=== PATIENT | male | born 1995 ===

== ENCOUNTER 2018-02-12 14:37 | Emergency (ER) | payer OTHER ==
[2018-02-12 15:32] VITALS: BP 133/73
[2018-02-12] MEDS ORDERED: Ibuprofen TAB* 600 MG PO ONE (15:38)
--- NOTE | 2018-02-12 15:38 | UC ---
Throat Pain/Nasal Connor HPI - HPI Summary HPI Summary: Patient urgent care today with 3-4 days of bodyaches fevers chills nausea vomiting sore throat. Patient has no known illness exposures. He is a college student. He did not have influenza vaccine this year and he has never had mono. - History of Current Complaint Chief Complaint: UCRespiratory Stated Complaint: COUGH/ACHE Time Seen by Provider: 02/12/18 15:37 Hx Obtained From: Patient Onset/Duration: Sudden Onset, Lasting Days - 3-4 Severity: Severe Pain Intensity: 9 Pain Scale Used: 0-10 Numeric Cough: None Associated Signs & Symptoms: Positive: Fever - Allergies/Home Medications Allergies/Adverse Reactions: Allergies Allergy/AdvReac Type Severity Reaction Status Date / Time No Known Allergies Allergy Verified 02/12/18 15:24 Home Medications: Home Medications Acetaminophen TAB* [Tylenol TAB*] 650 mg PO Q4H PRN 02/12/18 [History Confirmed 02/12/18] PMH/Surg Hx/FS Hx/Imm Hx Previously Healthy: No - 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 - Surgical History Surgical History: None - Family History Known Family History: Positive: None - Social History Occupation: Student Lives: Dormitory/Roommates Alcohol Use: Occasionally Substance Use Type: None Smoking Status (MU): Never Smoked Tobacco Review of Systems Constitutional: Fever, Chills, Fatigue Skin: Negative Eyes: Negative ENT: Sore Throat Respiratory: Negative Cardiovascular: Negative Gastrointestinal: Abdominal Pain, Vomiting, Diarrhea, Nausea Genitourinary: Negative Motor: Negative Neurovascular: Negative Musculoskeletal: Arthralgia, Myalgia Neurological: Headache Psychological: Negative Is Patient Immunocompromised?: No All Other Systems Reviewed And Are Negative: Yes Physical Exam Triage Information Reviewed: Yes Appearance: Well-Nourished, Ill-Appearing, Pain Distress Vital Signs: Initial Vital Signs Temp 100.3 F 02/12/18 15:24 Pulse 113 02/12/18 15:24 Resp 18 02/12/18 15:24 BP 133/73 02/12/18 15:24 Pulse Ox 97 02/12/18 15:24 Vital Signs Reviewed: Yes Eye Exam: Normal Eyes: Positive: Conjunctiva Clear ENT Exam: Normal ENT: Positive: Normal ENT inspection, Hearing grossly normal, Pharyngeal erythema, Tonsillar swelling, Tonsillar exudate, Uvula midline. Negative: Nasal congestion, Trismus, Hoarse voice, Dental tenderness, Sinus tenderness Dental Exam: Normal Neck exam: Normal Neck: Positive: Supple, Nontender, No Lymphadenopathy Respiratory Exam: Normal Respiratory: Positive: Chest non-tender, Lungs clear, Normal breath sounds, No respiratory distress, No accessory muscle use Cardiovascular Exam: Normal Cardiovascular: Positive: RRR, No Murmur, Pulses Normal, Brisk Capillary Refill Abdominal Exam: Normal Abdomen Description: Positive: No Organomegaly, Soft - right and left upper quad. tenderness, Other: Bowel Sounds: Positive: Present Musculoskeletal Exam: Normal Musculoskeletal: Positive: Strength Intact, ROM Intact, No Edema Neurological Exam: Normal Neurological: Positive: Alert, Muscle Tone Normal Psychological Exam: Normal Skin Exam: Normal Diagnostics - Laboratory Diagnostic Studies Completed/Ordered: Rapid strep negative. Influenza A and influenza B are both negative Throat Pain/Nasal Course/Dx - Course Assessment/Plan: Will draw blood for mono with a CBC. No contact sports until diagnosis made rest increase fluids Tylenol ibuprofen. To emergency department should symptoms worsen in anyway. follow up with [facility] recheck when necessary. - Differential Dx/Diagnosis Differential Diagnosis/HQI/PQRI: Brandon's Angina Provider Diagnoses: Exudative pharyngitis, viral syndrome Discharge - Sign-Out/Discharge Documenting (check all that apply): Discharge - Discharge Plan Condition: Stable Disposition: HOME Patient Education Materials: Ibuprofen (By mouth), Pharyngitis (ED), Mononucleosis (ED) Referrals: [facility] [Outside] - 2 Days Additional Instructions: We will have his lab tests back tomorrow afternoon. We will call you if any test results are positive. If you are concerned about the results and you haven 't gotten a phone call from us please feel free to call. No contact sports until diagnosis has been made. Follow up with [facility]. Increase fluids, Tylenol and ibuprofen for pain - Billing Disposition and Condition Condition: STABLE Disposition: HOME
[2018-02-12 20:04] LABS: Hematocrit 44 % (42-52); Hemoglobin 14.9 g/dl (14.0-18.0); Mean Corpuscular HGB Conc 34 g/dl (31-36); Mean Corpuscular Hemoglobin 31 pg (27-31); Mean Corpuscular Volume 92 fL (80-94); Mean Platelet Volume 8.3 um3 (7.4-10.4); Platelet Count 212 10^3/ul (150-450); Red Blood Count 4.75 10^6/ul (4.0-5.4); Red Cell Distribution Width 13 % (10.5-15); White Blood Count 15.8 10^3/ul (3.5-10.8)
[2018-02-12 21:20] LABS: ABS Basophils 0 10^3/ul (0-0.2); ABS Eosinophils 0 10^3/ul (0-0.6); ABS Lymphocytes 0.8 10^3/ul (1.0-4.8); ABS Monocytes 1.8 10^3/ul (0-0.8); ABS Neutrophils 13.2 10^3/ul (1.5-7.7); ABS Nucleated RBC 0 10^3/ul; Eosinophil % 0.2 % (0-6); Lymphocyte % 5.2 % (25-47); Nucleated Red Blood Cells % 0
--- NOTE | 2018-02-13 07:43 | UC ---
- Progress Note Progress Note: Notify pt of increased WBCs His mono test is (-) but because he has been ill for only a few days this DOES NOT R/O mono Recheck if worse recheck in 3-4 days if not better Discharge - Sign-Out/Discharge Documenting (check all that apply): Post-Discharge Follow Up - Discharge Plan Condition: Stable Disposition: HOME Patient Education Materials: Ibuprofen (By mouth), Mononucleosis (ED), Pharyngitis (ED) Forms: *School Release Referrals: [facility] [Outside] - 2 Days Additional Instructions: We will have his lab tests back tomorrow afternoon. We will call you if any test results are positive. If you are concerned about the results and you haven 't gotten a phone call from us please feel free to call. No contact sports until diagnosis has been made. Follow up with [facility]. Increase fluids, Tylenol and ibuprofen for pain - Billing Disposition and Condition Condition: STABLE Disposition: HOME
== END 2018-02-12 16:56 | disposition home or self-care (01) ==
LOC: UCCORT 14:37
DX: J02.9 Acute pharyngitis, unspecified (principal); B34.9 Viral infection, unspecified
CPT/HCPCS: 36415; 85025; 86308; 86664; 86665; 87502; 87651; 99202; A9270-GY; G0463